=== PATIENT | female | born 1960 | race Caucasian/White ===

== ENCOUNTER 2020-12-06 14:43 | Day surgery (SDC) | payer OTHER ==
[~2020-12-06] VITALS: Ht 167.6 cm; Wt 80.9 kg
[2020-12-06] MEDS ORDERED: ZYRTEC PO (15:55)
[2020-12-06] MEDS ORDERED: VIT C PO (15:55)
[2020-12-06] MEDS ORDERED: TYLENOL PO (15:55)
[2020-12-06] MEDS ORDERED: [UNRECOGNIZED DRUG - OTHER] PO (15:55)
[2020-12-06] MEDS ORDERED: IBUPROFEN PO (15:55)
[2020-12-06] MEDS ORDERED: MULTIVITAMIN PO (15:55)
[2020-12-06] MEDS ORDERED: VITAMIN D PO (15:55)
[2020-12-06] MEDS ORDERED: ALLEGRA PO (15:55)
[2020-12-06] MEDS ORDERED: LACTATED RINGERS 1,000 ML IV SCH (16:00)
[2020-12-06] MEDS ORDERED: CHLORHEXIDINE 15 ML UDC PO ONE (16:00)
[2020-12-06 16:19] VITALS: BP 122/81
[2020-12-06] MEDS ORDERED: MIDAZOLAM 1 MG/ML, 2ML ONE (17:28)
[2020-12-06] MEDS ORDERED: FENTANYL PF 250 MCG/5ML ONE (17:29)
[2020-12-06] MEDS ORDERED: BACITRACIN 50,000 UNIT ONE (17:32)
[2020-12-06] MEDS ORDERED: BUPIVACAINE/PF 0.5% ONE (17:32)
[2020-12-06] MEDS ORDERED: EPINEPHRINE 1 MG/ML, 1ML ONE (17:32)
[2020-12-06] MEDS ORDERED: BUPIVACAINE/PF 0.25% ONE (17:32)
[2020-12-06] MEDS ORDERED: ONDANSETRON 2MG/ML, 2ML ONE (18:02)
[2020-12-06] MEDS ORDERED: CEFAZOLIN 1,000 MG ONE (18:02)
[2020-12-06] MEDS ORDERED: PROPOFOL 10 MG/ML, 50ML ONE (18:02)
[2020-12-06] MEDS ORDERED: DEXAMETHASONE 4 MG/ML, 1ML ONE (18:02)
[2020-12-06] MEDS ORDERED: LABETALOL 5MG/ML, 20ML IV PRN (18:30)
[2020-12-06] MEDS ORDERED: OXYcodone 5 MG/5 ML ORAL.SOL UDC PO PRN (18:30)
[2020-12-06] MEDS ORDERED: ONDANSETRON 2MG/ML, 2ML IVPush PRN (18:30)
[2020-12-06] MEDS ORDERED: MEPERIDINE/PF 25MG/0.5ML IVPush PRN (18:30)
[2020-12-06] MEDS ORDERED: EPHEDRINE 50 MG/ML, 1ML IVPush PRN (18:30)
[2020-12-06] MEDS ORDERED: DIPHENHYDRAMINE 50 MG/ML, 1ML IVPush PRN (18:30)
[2020-12-06] MEDS ORDERED: PROMETHAZINE 25 MG/ML, 1ML IVPush PRN (18:30)
[2020-12-06] MEDS ORDERED: ACETAMINOPHEN 325 MG TABLET PO PRN (18:30)
[2020-12-06] MEDS ORDERED: EPHEDRINE 50 MG/ML, 1ML IM PRN (18:30)
[2020-12-06] MEDS ORDERED: DIAZEPAM 5 MG/ML, 2ML IVPush PRN (18:30)
[2020-12-06] MEDS: FENTANYL PF 100 MCG/2ML IV PRN ×2 (19:10→19:20)
[2020-12-06] MEDS ORDERED: FENTANYL PF 100 MCG/2ML ONE (19:14)
[2020-12-06] MEDS ORDERED: OXYcodone 5 MG/5 ML ORAL.SOL UDC ONE (19:14)
[2020-12-06] MEDS: HYDROmorphone 1 MG/ML, 1ML INJ IVPush PRN ×2 (19:40→19:51)
[2020-12-06] MEDS ORDERED: HYDROmorphone 1 MG/ML, 1ML INJ ONE (19:44)
== END 2020-12-06 22:05 | disposition home or self-care (01) ==
LOC: OR 14:43
PROVIDERS: ATTEND Orthopaedic Surgery
DX: S52.571A Other intraarticular fracture of lower end of right radius, initial encounter for closed fracture (principal); X58.XXXA Exposure to other specified factors, initial encounter; Y93.89 Activity, other specified; Y92.89 Other specified places as the place of occurrence of the external cause; Y99.8 Other external cause status; Z72.89 Other problems related to lifestyle; Z20.822 Contact with and (suspected) exposure to COVID-19
CPT/HCPCS: 25609; 73100; 87635; C1713; C1776; J0171; J0690; J1100; J1170; J2250; J2405; J2704; J3010; J7120; 76000

== ENCOUNTER → 2021-01-18 | Outpatient (CLI) | payer OTHER ==
[~2021-01-18] MED LIST: ALLEGRA PO; CETI10TA76 PO; IBUP-1221 PO; IBUPROFEN PO; MULTIVITAMIN PO; TYLENOL PO; VIT C PO; VITAMIN D PO; ZYRTEC PO; [UNRECOGNIZED DRUG - OTHER] PO
== END | disposition home or self-care (01) ==
LOC: STAR 13:06
PROVIDERS: ATTEND Orthopaedic Surgery
DX: Z20.822 Contact with and (suspected) exposure to COVID-19 (principal); S52.551A Other extraarticular fracture of lower end of right radius, initial encounter for closed fracture; X58.XXXA Exposure to other specified factors, initial encounter; Y93.89 Activity, other specified; Y92.89 Other specified places as the place of occurrence of the external cause; Y99.8 Other external cause status
CPT/HCPCS: U0003; U0005

== ENCOUNTER 2021-01-24 08:05 | Day surgery (SDC) | payer OTHER ==
[~2021-01-24] VITALS: Ht 167.6 cm; Wt 80.6 kg
[2021-01-24 09:12] VITALS: BP 106/78
[2021-01-24] MEDS ORDERED: CHLORHEXIDINE 15 ML UDC PO ONE (09:30)
[2021-01-24] MEDS ORDERED: LACTATED RINGERS 1,000 ML IV SCH (09:30)
[2021-01-24] MEDS ORDERED: EPINEPHRINE 1 MG/ML, 1ML ONE (09:39)
[2021-01-24] MEDS ORDERED: BUPIVACAINE/PF 0.5% ONE (09:39)
[2021-01-24] MEDS ORDERED: MIDAZOLAM 1 MG/ML, 2ML ONE (09:45)
[2021-01-24] MEDS ORDERED: FENTANYL PF 100 MCG/2ML ONE (09:45)
[2021-01-24] MEDS ORDERED: PROPOFOL 10 MG/ML, 50ML ONE (09:56)
[2021-01-24] MEDS ORDERED: PROPOFOL 10 MG/ML, 20ML ONE (10:21)
[2021-01-24] MEDS ORDERED: CEFAZOLIN 1,000 MG ONE (10:21)
[2021-01-24] MEDS ORDERED: ONDANSETRON 2MG/ML, 2ML ONE (10:21)
[2021-01-24] MEDS ORDERED: OXYcodone 5 MG/5 ML ORAL.SOL UDC PO PRN (10:30)
[2021-01-24] MEDS ORDERED: FENTANYL PF 100 MCG/2ML IV PRN (10:30)
[2021-01-24] MEDS ORDERED: LORazepam 2 MG/ML, 1ML IVPush PRN (10:30)
[2021-01-24] MEDS ORDERED: PROMETHAZINE 25 MG/ML, 1ML IVPush PRN (10:30)
[2021-01-24] MEDS ORDERED: ACETAMINOPHEN 325 MG TABLET PO PRN (10:30)
== END 2021-01-24 14:10 | disposition home or self-care (01) ==
LOC: OUT 08:05
PROVIDERS: ATTEND Orthopaedic Surgery
DX: Z47.2 Encounter for removal of internal fixation device (principal); Z79.899 Other long term (current) drug therapy; Z72.89 Other problems related to lifestyle; Z98.890 Other specified postprocedural states; Z98.51 Tubal ligation status
CPT/HCPCS: 20680; 73100; J0171; J0690; J2250; J2405; J2704; J3010; J7120; 76000